=== PATIENT | female | born 1970 | race Caucasian/White ===

== ENCOUNTER 2020-10-03 15:02 | Outpatient (CLI) | payer BC | END 2020-10-03 15:03 | disposition home or self-care (01) | LOC: CSHMRI 15:02 | PROVIDERS: ATTEND Nurse Practitioner Acute Care | DX: R93.0 Abnormal findings on diagnostic imaging of skull and head, not elsewhere classified (principal); G93.89 Other specified disorders of brain | CPT/HCPCS: 70553 ==